=== PATIENT | male | born 2000 | race Caucasian/White ===

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

== ENCOUNTER → 2020-02-16 | Outpatient (CLI) | payer OTHER ==
[2020-02-16 17:25] LABS: BASO % 1 % (0-3); EOS # 0.2 x10^3/uL (0.0-0.7); EOS % 3 % (0-3); HEMATOCRIT 42.5 % (39.0-53.0); HEMOGLOBIN 14.4 g/dL (13.0-17.5); LYMPH # 1.8 x10^3/uL (1.0-4.8); LYMPH % 34 % (24-48); MEAN CORPUSCULAR HEMOGLOBIN 30 pg (25-35); MEAN CORPUSCULAR HGB CONC 34 g/dL (31-37); MEAN CORPUSCULAR VOLUME 88 fL (79-100); MONO # 0.4 x10^3/uL (0.0-1.1); MONO % 7 % (0-9); NEUT % 55 % (31-73); PLATELET COUNT 235 x10^3/uL (140-400); RED BLOOD COUNT 4.82 x10^6/uL (4.30-5.70); WHITE BLOOD COUNT 5.4 x10^3/uL (4.0-11.0)
[2020-02-16 17:38] LABS: ALBUMIN 4.3 g/dL (3.4-5.0); ALBUMIN/GLOBULIN RATIO 1.5 (1.0-1.7); CALCIUM 9.2 mg/dL (8.5-10.1); CREATININE 1.1 mg/dL (0.7-1.3); GFR 86.2; POTASSIUM 3.6 mmol/L (3.5-5.1); TOTAL BILIRUBIN 0.6 mg/dL (0.2-1.0); TOTAL PROTEIN 7.2 g/dL (6.4-8.2)
[2020-02-16 22:07] LABS: RHEUMATOID FACTOR <10.0 IU/mL (0.0-13.9)
[2020-02-17 15:59] LABS: FREE T4 1.11 ng/dL (0.76-1.46); THYROID STIM HORMONE (TSH) 2.604 uIU/mL (0.358-3.740)
[2020-02-19 01:07] LABS: CYCLIC CITRULLIN PEP AB 6 units (0-19)
== END ==
LOC: LAB 16:11
PROVIDERS: ATTEND Physician Assistant
DX: Z00.00 Encounter for general adult medical examination without abnormal findings (principal); L70.0 Acne vulgaris; R53.83 Other fatigue; M25.50 Pain in unspecified joint; M25.511 Pain in right shoulder; M25.551 Pain in right hip; M25.571 Pain in right ankle and joints of right foot; F41.9 Anxiety disorder, unspecified
CPT/HCPCS: 36415; 80053; 82607; 82746; 84439; 84443; 85025; 86200; 86431

== ENCOUNTER → 2021-03-15 | Outpatient (CLI) | payer OTHER ==
[2021-03-15 16:59] LABS: MONONUCLEOSIS PATIENT NEGATIVE (NEGATIVE)
== END ==
LOC: LAB 15:00
PROVIDERS: ATTEND Nurse Practitioner Family
DX: R53.83 Other fatigue (principal)
CPT/HCPCS: 86308

== ENCOUNTER → 2021-05-18 | Outpatient (CLI) | payer OTHER ==
--- NOTE | 2021-05-18 10:00 | RAD ---
XR BILATERAL HIP (WITH OR WITHOUT PELVIS) 2 VIEWS_RIGHT History: Pain Comparison: None. Technique: Coned-down AP and frog-leg lateral views of the right hip. Findings: Osseous mineralization is normal. No acute fracture or dislocaton. Osseous prominence of the femoral head neck junction compatible with pistol-rug dyer morphology. No significant degenerative changes. Soft tissues are unremarkable. Impression: 1. No acute osseous abnormality of the right hip. 2. 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 Electronically signed by: Yovany Regan MD (05/18/2021 9:58 AM) [facility]
--- NOTE | 2021-05-18 10:01 | RAD ---
XR SHOULDER_RIGHT 2+ VIEWS History: Pain Comparison: None. Technique: 3 views of the right shoulder. Findings: Osseous mineralization is normal. No acute fracture or dislocaton. Normal alignment of the acromiocla vicular joint. The subacromial space is preserved. No significant degenerative changes. Soft tissues are unremarkable. Impression: 1. Unremarkable right shoulder. Electronically signed by: Yovany Regan MD (05/18/2021 9:58 AM) [facility]
== END ==
LOC: RAD 09:12
PROVIDERS: ATTEND Physician Assistant
DX: M25.511 Pain in right shoulder (principal); M25.551 Pain in right hip
CPT/HCPCS: 73030; 73502

== ENCOUNTER → 2021-07-21 | Outpatient (CLI) | payer OTHER ==
[2021-07-21 12:44] LABS: BASO # 0.2 x10^3/uL (0.0-0.2); BASO % 4 % (0-3); EOS # 0.1 x10^3/uL (0.0-0.7); EOS % 2 % (0-3); HEMATOCRIT 43.1 % (39.0-53.0); HEMOGLOBIN 14.5 g/dL (13.0-17.5); LYMPH # 1.9 x10^3/uL (1.0-4.8); LYMPH % 33 % (24-48); MEAN CORPUSCULAR HEMOGLOBIN 30 pg (25-35); MEAN CORPUSCULAR HGB CONC 34 g/dL (31-37); MEAN CORPUSCULAR VOLUME 88 fL (79-100); MONO # 0.5 x10^3/uL (0.0-1.1); MONO % 9 % (0-9); NEUT # 2.8 x10^3uL (1.8-7.7); NEUT % 51 % (31-73); PLATELET COUNT 241 x10^3/uL (140-400); RED BLOOD COUNT 4.88 x10^6/uL (4.30-5.70); WHITE BLOOD COUNT 5.6 x10^3/uL (4.0-11.0)
[2021-07-21 12:57] LABS: ALBUMIN 3.8 g/dL (3.4-5.0); ALBUMIN/GLOBULIN RATIO 1.4 (1.0-1.7); CALCIUM 8.8 mg/dL (8.5-10.1); GFR 95.3; POTASSIUM 3.6 mmol/L (3.5-5.1); TOTAL BILIRUBIN 0.5 mg/dL (0.2-1.0); TOTAL PROTEIN 6.5 g/dL (6.4-8.2)
[2021-07-21 13:57] LABS: SEDIMENTATION RATE 1 (0-15)
[2021-07-22 11:00] LABS: FREE T4 0.85 ng/dL (0.76-1.46)
[2021-07-22 11:01] LABS: THYROID STIM HORMONE (TSH) 3.755 uIU/mL (0.358-3.740)
[2021-07-24 17:07] LABS: ANA INTERP Negative (.)
[2021-07-24 23:07] LABS: CYCLIC CITRULLIN PEP AB 6 units (0-19)
== END ==
LOC: LAB 11:33
PROVIDERS: ATTEND Physician Assistant
DX: Z00.00 Encounter for general adult medical examination without abnormal findings (principal); M24.20 Disorder of ligament, unspecified site; M24.50 Contracture, unspecified joint
CPT/HCPCS: 36415; 80053; 84439; 84443; 85025; 85651; 86038; 86200

== ENCOUNTER 2021-09-12 18:48 | Emergency (ER) | payer OTHER ==
[~2021-09-12] VITALS: Ht 182.9 cm; Wt 79.4 kg
[2021-09-12] MEDS ORDERED: DIPHTH,PERTUSS(ACELL),TET TOX 0.5 ML DISP.SYRIN. VAX IM ONE (20:00)
--- NOTE | 2021-09-12 20:58 | RAD ---
EXAMINATION: XR FOOT_LEFT 3 VIEWS CLINICAL HISTORY: SMALL NAIL THROUGH HEEL, IT HAS BEEN REMOVED, PAIN. TECHNIQUE: XR FOOT_LEFT 3 VIEWS COMPARISON: None FINDINGS/ IMPRESSION: Joint spaces and alignment maintained. No acute fracture. No focal soft tissue swelling. No evidence of retained radiopaque foreign body. Electronically signed by: Babar John DO (09/12/2021 8:55 PM) [facility]
--- NOTE | 2021-09-12 21:03 | PHYS DOC ---
Past History Past Medical History: No Pertinent History Past Surgical History: Other Additional Past Surgical Histo: wisdom tooth removal Smoking: Non-smoker Alcohol Use: None Drug Use: None General Adult EDM: Chief Complaint: FOOT INJURY PAIN HPI: HPI: Patient is a 20-year-old male who presents with puncture wound to bottom of left foot. Patient states he stepped on a malorie nail. Denies pain. No bleeding. Patient was concerned due to nail being malorie. No medical history. Up-to-date on immunizations. Review of Systems: Review of Systems: ROS At least 10 ROS systems have been reviewed and are negative except as documented in the HPI. General: Negative except as outlined in HPI above. Skin: Negative except as outlined in HPI above. HEENT: Negative except as outlined in HPI above. Neck: Negative except as outlined in HPI above. Respiratory: Negative except as outlined in HPI above.. Cardiovascular: Negative except as outlined in HPI above. Abdomen: Negative except as outlined in HPI above. : Negative except as outlined in HPI above. Back/MSK: Negative except as outlined in HPI above. Neuro: Negative except as outlined in HPI above. Psych: Negative except as outlined in HPI above. Current Medications: Current Meds: Current Medications Medications (Trade) Dose Ordered Sig/Barry Start Time Stop Time Status Last Admin Dose Admin Diphtheria/ Tetanus/Acell Pertussis (Boostrix) 0.5 ml ONCE ONCE 09/12/21 20:00 09/12/21 20:01 DC 09/12/21 20:00 0.5 ML Allergies: Allergies: Allergies Coded Allergies Type Severity Reaction Last Updated Verified No Known Drug Allergies 04/01/19 No Physical Exam: PE: Constitutional: Well developed, well nourished, no acute distress, non-toxic appearance. [] HENT: Normocephalic, atraumatic, bilateral external ears normal, oropharynx moist, no oral exudates, nose normal. [] Eyes: PERRLA, EOMI, conjunctiva normal, no discharge. [] Neck: Normal range of motion, no tenderness, supple, no stridor. [] Cardiovascular:Heart rate regular rhythm, no murmur [] Lungs & Thorax: Bilateral breath sounds clear to auscultation [] Abdomen: Bowel sounds normal, soft, no tenderness, no masses, no pulsatile masses. [] Skin: Puncture wound to bottom of left heel, tender Back: No tenderness, no CVA tenderness. [] Extremities: No tenderness, no cyanosis, no clubbing, ROM intact, no edema. [] Neurologic: Alert and oriented X 3, normal motor function, normal sensory function, no focal deficits noted. [] Psychologic: Affect normal, judgement normal, mood normal. [] Current Patient Data: Vital Signs: Vital Signs Date Time Temp Pulse Resp B/P (MAP) Pulse Ox O2 Delivery O2 Flow Rate FiO2 09/12/21 19:50 97.9 60 16 EKG: EKG: [] Radiology/Procedures: Radiology/Procedures: []EXAMINATION: XR FOOT_LEFT 3 VIEWS CLINICAL HISTORY: SMALL NAIL THROUGH HEEL, IT HAS BEEN REMOVED, PAIN. TECHNIQUE: XR FOOT_LEFT 3 VIEWS COMPARISON: None FINDINGS/ IMPRESSION: Joint spaces and alignment maintained. No acute fracture. No focal soft tissue swelling. No evidence of retained radiopaque foreign body. Electronically signed by: Babar John DO (09/12/2021 8:55 PM) [facility] Heart Score: C/O Chest Pain: No Risk Factors: Risk Factors: DM, Current or recent (<one month) smoker, HTN, HLP, family histo ry of CAD, obesity. Risk Scores: Score 0 - 3: 2.5% MACE over next 6 weeks - Discharge Home Score 4 - 6: 20.3% MACE over next 6 weeks - Admit for Clinical Observation Score 7 - 10: 72.7% MACE over next 6 weeks - Early Invasive Strategies Course & Med Decision Making: Course & Med Decision Making Pertinent Labs and Imaging studies reviewed. (See chart for details) [] 20-year-old male presents with puncture wound to the bottom of his left foot. X-ray is unremarkable. No foreign body no fracture seen. Denies needing anything for pain. Tetanus was updated. Discussed keeping the wound clean and covered. Discussed return precautions. Dragon Disclaimer: Felecia Disclaimer: This electronic medical record was generated, in whole or in part, using a voice recognition dictation system. Departure Departure: Impression: Primary Impression: Puncture wound Disposition: HOME / SELF CARE / HOMELESS Condition: STABLE Referrals: BRAXTON CORLEY (PCP) Patient Instructions: Puncture Wound, [id number] Additional Instructions: You are seen the emergency room after stepping on a nail. X-ray was unremarkable. There was no foreign body in your foot. We are updated your tetanus. Ibuprofen Tylenol for pain. Return to emergency room for worsening sy mptoms or concerns. EMERGENCY DEPARTMENT GENERAL DISCHARGE INSTRUCTIONS Thank you for coming to [facility] (ED) today and trusting us with you care. We trust that you had a positivie experience in our Emergency Department. If you wish to speak to the department management, you may call the director at [phone]. YOUR FOLLOW UP INSTRUCTIONS ARE FOLLOWS: 1. Do you have a private Doctor? If you do not have a private doctor, please ask for a resource list of physicians or clinics that may be able to assist you with follow up care. 2. The Emergency Physician has interpreted your x-rays. The X-Ray specialist will also review them. If there is a change in the findings, you will be notified in 48 hours when at all possible. 3. A lab test or culture has been done, your results will be reviewed and you will be notified if you need a change in treatment. ADDITIONAL INSTRUCTIONS AND INFORMATION: 1. Your care today has been supervised by a physician who is specially trained in emergency care. Many problems require more than one evaluation for a complete diagnosis and treatment. We recommend that you schedule your follow up appointment as recommended to ensure complete treatment of you illness or injury. If you are unable to obtain follow up care and continue to have a problem, or if your condition worsens, we recommend that you return to the ED. 2. We are not able to safely determine your condition over the phone nor are we able to give sound medical advice over the phone. For these safety reasons, if you call for medical advice we will ask you to come to the ED for further evaluation. 3. If you have any questions regarding these discharge instructions please call the ED at [phone]. SAFETY INFORMATION: In the interest of safety, wellness, and injury prevention; we encourage you to wear your sealbelt, if you smoke; quite smoking, and we encourage family to use a protective helmet for bicycling and other sporting events that present an increased risk for head injury. IF YOUR SYMPTOMS WORSEN OR NEW SYMPTOMS DEVELOP, OR YOU HAVE CONCERNS ABOUT YOUR CONDITION; OR IF YOUR CONDITION WORSENS WHILE YOU ARE WAITING FOR YOUR FOLLOW UP APPOINTMENT; EITHER CONTACT YOUR PRIMARY CARE DOCTOR, THE PHYSICIAN WHOSE NAME AND NUMBER YOU WERE GIVEN, OR RETURN TO THE ED IMMEDIATELY. DIONNE MARAVILLA APRN September 12, 2021 21:03
== END 2021-09-12 21:23 | disposition home or self-care (01) ==
LOC: ER 18:48
DX: S91.332A Puncture wound without foreign body, left foot, initial encounter (principal); W22.8XXA Striking against or struck by other objects, initial encounter; Y93.89 Activity, other specified; Y92.89 Other specified places as the place of occurrence of the external cause; Y99.8 Other external cause status
CPT/HCPCS: 73630; 90471; 90715; 99283